=== PATIENT | female | born 1995 | race African-American/Black ===

== ENCOUNTER 2016-12-01 22:18 | Observation (INO) | payer OTHER, MEDICAID ==
[~2016-12-01] VITALS: Ht 162.6 cm; Wt 62.6 kg
[2016-12-01 23:54] VITALS: BP 116/63
[2016-12-01] MEDS ORDERED: PREN1TAB80 PO (23:58)
[2016-12-02] MEDS ORDERED: MetroNIDAZOLE 500 MG TABLET PO ONE (01:30)
== END 2016-12-02 02:00 | disposition home or self-care (01) ==
LOC: 4S 22:18
PROVIDERS: ADMIT Obstetrics & Gynecology; ATTEND Obstetrics & Gynecology
DX: O26.852 Spotting complicating pregnancy, second trimester (principal); O98.312 Other infections with a predominantly sexual mode of transmission complicating pregnancy, second trimester; Z3A.24 24 weeks gestation of pregnancy
CPT/HCPCS: 59025; 80307 ×8; 87086; 87210; G0378 ×2